=== PATIENT | female | born 1990 ===

== ENCOUNTER 2022-05-05 10:34 | Emergency (ER) | payer SELFPAY ==
[2022-05-05 12:22] LABS: Blood Urea Nitrogen 11 mg/dL (7-17); Calcium 9.3 mg/dL (8.4-10.2); Hemolysis Index 7
[2022-05-05 12:27] LABS: Basophils % (Auto) 0.6 % (0.0-1.8); Eosinophils # (Auto) 0.1 K/mm3 (0.0-0.4); Eosinophils % (Auto) 1.4 % (0.0-4.3); Hematocrit 39.6 % (30.3-42.9); Hemoglobin 12.9 gm/dl (10.1-14.3); Lymphocytes # (Auto) 1.7 K/mm3 (1.2-5.4); Lymphocytes % (Auto) 33.3 % (13.4-35.0); Mean Corpuscular HGB Conc 33 % (30-34); Mean Corpuscular Volume 92 fl (79-97); Monocytes # (Auto) 0.4 K/mm3 (0.0-0.8); Monocytes % (Auto) 8.5 % (0.0-7.3); Platelet Count 193 K/mm3 (140-440); Red Blood Count 4.29 M/mm3 (3.65-5.03); Red Cell Distribution Width 16.1 % (13.2-15.2)
[2022-05-05] MEDS ORDERED: POTASSIUM CHLORIDE ER 20 MEQ TAB PO ONE (12:31)
--- NOTE | 2022-05-05 12:35 | Emergency Department Report ---
ED General Adult HPI - General Chief complaint: Psych Stated complaint: I need to detox Time Seen by Provider: 05/05/22 11:27 Source: patient Mode of arrival: Ambulatory Limitations: No Limitations - History of Present Illness Initial comments: The patient was evaluated in the emergency department for symptoms described in the history of present illness. He/she was evaluated in the context of the global COVID-19 pandemic, which necessitated consideration that the patient might be at risk for infection with the virus that causes COVID-19. Instituti onal protocols and algorithms that pertain to the evaluation of patients at risk for COVID-19 are in a state of rapid change based on information released by regulatory bodies including the CDC and federal and state organizations. These policies and algorithms were followed during the patient's care in the emergency department. Please note that these policies, procedures and recommendations changed on a rapid basis. This patient is a 31-year-old female who reports that she is not , who is presenting to the department today with a complaint of painless request for detox. She smokes crack. She denies physical pain. She is not homicidal or suicidal. She reports that she lives locally with friends. She is not experiencing hallucinations. She is currently not using needles by her history. Severity scale (0 -10): 0 - Related Data Previous Rx's Medication Instructions Recorded Last Taken Type Multivitamin Tab [Multiple Vitamin 1 each PO QDAY #30 tablet 05/05/22 Unknown Rx TAB (Theragran)] Naloxone HCl [Narcan Nasal [place]] 4 mg NS PRN PRN #1 spray 05/05/22 Unknown Rx Allergies Allergy/AdvReac Type Severity Reaction Status Date / Time No Known Allergies Allergy Verified 05/05/22 10:50 ED Review of Systems ROS: Stated complaint: MENTAL HEALTH EVAL Other details as noted in HPI Constitutional: denies: fever Eyes: denies: eye discharge ENT: denies: epistaxis Respiratory: denies: cough Cardiovascular: denies: chest pain Gastrointestinal: denies: abdominal pain Genitourinary: denies: dysuria Psychiatric: denies: auditory hallucinations, visual hallucinations, homicidal thoughts, suicidal thoughts ED Past Medical Hx - Past Medical History Previous Medical History?: Yes Hx Psychiatric Treatment: Yes (bipolar, depression) - Surgical History Past Surgical History?: No - Medications Home Medications: Home Medications Medication Instructions Recorded Confirmed Last Taken Type Multivitamin Tab [Multiple Vitamin 1 each PO QDAY #30 tablet 05/05/22 Unknown Rx TAB (Theragran)] Naloxone HCl [Narcan Nasal [place]] 4 mg NS PRN PRN #1 spray 05/05/22 Unknown Rx ED Physical Exam - General Limitations: No Limitations General appearance: alert, in no apparent distress - Head Head exam: Present: atraumatic, normocephalic - Eye Eye exam: Present: normal appearance, EOMI. Absent: nystagmus - ENT ENT exam: Present: normal exam, normal orophraynx, mucous membranes moist, normal external ear exam - Neck Neck exam: Present: normal inspection, full ROM. Absent: tenderness, me ningismus - Respiratory Respiratory exam: Present: normal lung sounds bilaterally. Absent: respiratory distress, wheezes, rales, rhonchi, stridor, decreased breath sounds - Cardiovascular Cardiovascular Exam: Present: regular rate, normal rhythm, normal heart sounds. Absent: bradycardia, tachycardia, irregular rhythm, systolic murmur, diastolic murmur, rubs, gallop - GI/Abdominal GI/Abdominal exam: Present: soft. Absent: distended, tenderness, guarding, rebound, rigid, pulsatile mass - Extremities Exam Extremities exam: Present: normal inspection, full ROM, other (2+ pulses noted in the bilateral upper and lower extremities. There is no palpable cord. negative Homans sign. Muscular compartments are soft. The pelvis is stable.). Absent: pedal edema, calf tenderness - Back Exam Back exam: Present: normal inspection. Absent: tenderness, CVA tenderness (R), CVA tenderness (L), paraspinal tenderness, vertebral tenderness - Neurological Exam Neurological exam: Present: alert, oriented X3, other (No facial droop. Tongue midline. Extraocular movements intact bilaterally. Facial sensation intact to light touch in V1, V2, V3 distribution bilaterally. 5 and a 5 strength in 4 extremities. Sensation intact to light touch in 4 extremities.). Absent: motor sensory deficit - Psychiatric Psychiatric exam: Present: normal affect, normal mood. Absent: homicidal ideation, suicidal ideation - Skin Skin exam: Present: warm, dry, intact, normal color. Absent: rash ED Course Vital Signs 05/05/22 05/05/22 05/05/22 10:50 13:13 14:50 Temperature 98.3 F Pulse Rate 89 68 Respiratory 18 15 Rate Blood Pressure 129/88 109/75 [Left] O2 Sat by Pulse 97 100 100 Oximetry 05/05/22 16:10 Temperature Pulse Rate 84 Respiratory 18 Rate Blood Pressure 125/63 [Left] O2 Sat by Pulse 99 Oximetry - Reevaluation(s) Reevaluation #1: 05/05/22 12:36 Differential diagnosis, including but not limited to: Polysubstance abuse, encounter for medical screening evaluation, encounter for behavioral health screening Assessment and plan: 31-year-old female, who is clinically sober, with a GCS of 15, who does not meet criteria for 1013 hold or involuntary confinement, who is not currently homicidal or suicidal, presenting primarily for a request for detox. Her physical exam is unremarkable. She is awake, alert, oriented and sober. She may address potassium of 3.4 through diet and lifestyle modifications. She will be provided a list of substance abuse programs. She is resting comfortably in stretcher, and in no acute distress. She does not appear to have an emergent medical or psychiatric condition present at this time ED Medical Decision Making - Lab Data Result diagrams: 05/05/22 11:25 05/05/22 11:25 Vital Signs 05/05/22 10:50 Temperature 98.3 F Pulse Rate 89 Respiratory 18 Rate Blood Pressure 129/88 [Left] O2 Sat by Pulse 97 Oximetry Lab Results 05/05/22 05/05/22 05/05/22 Range/Units 11:25 11:25 11:25 WBC 5.1 (4.5-11.0) K/mm3 RBC 4.29 (3.65-5.03) M/mm3 Hgb 12.9 (10.1-14.3) gm/dl Hct 39.6 (30.3-42.9) % MCV 92 (79-97) fl MCH 30 (28-32) pg MCHC 33 (30-34) % RDW 16.1 H (13.2-15.2) % Plt Count 193 (140-440) K/mm3 Lymph % (Auto) 33.3 (13.4-35.0) % [place] % (Auto) 8.5 H (0.0-7.3) % Eos % (Auto) 1.4 (0.0-4.3) % Baso % (Auto) 0.6 (0.0-1.8) % Lymph # (Auto) 1.7 (1.2-5.4) K/mm3 [place] # (Auto) 0.4 (0.0-0.8) K/mm3 Eos # (Auto) 0.1 (0.0-0.4) K/mm3 Baso # (Auto) 0.0 (0.0-0.1) K/mm3 Seg Neutrophils % 56.2 (40.0-70.0) % Seg Neutrophils # 2.9 (1.8-7.7) K/mm3 Sodium 141 (137-145) mmol/L Potassium 3.4 L (3.6-5.0) mmol/L Chloride 103.2 (98-107) mmol/L Carbon Dioxide 27 (22-30) mmol/L Anion Gap 14 mmol/L BUN 11 (7-17) mg/dL Creatinine 0.6 (0.6-1.2) mg/dL Estimated GFR > 60 ml/min BUN/Creatinine Ratio 18 % Glucose 97 (65-100) mg/dL Calcium 9.3 (8.4-10.2) mg/dL Salicylates < 0.3 L (2.8-20.0) mg/dL Plasma/Serum Alcohol (0-0.07) % 05/05/22 Range/Units 11:25 WBC (4.5-11.0) K/mm3 RBC (3.65-5.03) M/mm3 Hgb (10.1-14.3) gm/dl Hct (30.3-42.9) % MCV (79-97) fl MCH (28-32) pg MCHC (30-34) % RDW (13.2-15.2) % Plt Count (140-440) K/mm3 Lymph % (Auto) (13.4-35.0) % [place] % (Auto) (0.0-7.3) % Eos % (Auto) (0.0-4.3) % Baso % (Auto) (0.0-1.8) % Lymph # (Auto) (1.2-5.4) K/mm3 [place] # (Auto) (0.0-0.8) K/mm3 Eos # (Auto) (0.0-0.4) K/mm3 Baso # (Auto) (0.0-0.1) K/mm3 Seg Neutrophils % (40.0-70.0) % Seg Neutrophils # (1.8-7.7) K/mm3 Sodium (137-145) mmol/L Potassium (3.6-5.0) mmol/L Chloride (98-107) mmol/L Carbon Dioxide (22-30) mmol/L Anion Gap mmol/L BUN (7-17) mg/dL Creatinine (0.6-1.2) mg/dL Estimated GFR ml/min BUN/Creatinine Ratio % Glucose (65-100) mg/dL Calcium (8.4-10.2) mg/dL Salicylates (2.8-20.0) mg/dL Plasma/Serum Alcohol < 0.01 (0-0.07) % Critical care attestation.: If time is entered above; I have spent that time in minutes in the direct care of this critically ill patient, excluding procedure time. ED Disposition Clinical Impression: Polysubstance abuse, Encounter for behavioral health screening, Hypokalemia, Encounter for medical screening examination Disposition: 01 HOME / SELF CARE / HOMELESS Is pt being admited?: No Does the pt Need Aspirin: No Condition: Good Additional Instructions: Patient may take a multivitamin [id number] on a daily basis, or consume foods that are elevated in potassium, such as banana, avocado, potato. Recommend follow-up with a primary care doctor within the next month. Please return to the emergency room right away with new pain, worsened pain, migration of pain, projectile vomiting, change in mental status, confusion, i nability tolerate liquid feeds, new, worsened or different symptoms not present on the initial emergency room evaluation Please follow-up with an outpatient mental health specialist within the next week. Avoid consumption of alcohol, tobacco, smoke products and recreational drugs. Please return to the emergency room right away with new pain, worsened pain, migration of pain, projectile vomiting, change in mental status, confusion, inability tolerate liquid feeds, new, worsened or different symptoms not present on the initial emergency room evaluation professional and Agency Contacts To help [facility] (22/03) [place] Crisis Line: Suicide Prevention Line: Crisis Text Line: Text ``START to 464590 Emergency: 911 Outpatient COMMUNITY Behavioral Health Resources: [place]: [facility] [address], [place], [place] [address] [facility] [address] [place] [address] Wednesday thru Wednesday - 8am - 5pm Call to schedule an assessment for mental health and substance abuse programs [facility] Address: [address] [place] [address] Wednesday thru Wednesday- 7am-2pm [facility] Address: [address] [place] [address] Wednesday thru Wednesday: 8:30AM-5PM Prescriptions: Multivitamin Tab [Multiple Vitamin TAB (Theragran)] 1 each PO QDAY #30 tablet Naloxone HCl [Narcan Nasal [place]] 4 mg NS PRN PRN #1 spray PRN Reason: Opioid Reversal Referrals: [facility] [Outside] - 3-5 Days [facility] [Outside] - 3-5 Days
[2022-05-05 12:36] LABS: BUN/Creatinine Ratio 18
[2022-05-05] MEDS ORDERED: LIDOCAINE (1%) 10 MG/1 ML VIAL 20 ML MDV ONE (15:24)
[2022-05-05 16:11] VITALS: BP 125/63
== END 2022-05-05 14:00 | disposition home or self-care (01) ==
LOC: ED 10:34
DX: Z13.30 Encounter for screening examination for mental health and behavioral disorders, unspecified (principal); F15.10 Other stimulant abuse, uncomplicated; E87.6 Hypokalemia; F31.9 Bipolar disorder, unspecified; Z79.899 Other long term (current) drug therapy
CPT/HCPCS: 36415; 80048; 80320; 85025; 99284; G0480